=== PATIENT | female | born 1990 | race Caucasian/White ===

== ENCOUNTER 2020-05-30 16:16 | Emergency (ER) | payer OTHER ==
[2020-05-30 16:34] VITALS: BP 140/88; PULSE 93; TEMP 97.9; BMI 23.8
--- OUTSIDE RECORDS SUMMARY | 2020-05-30 16:44 | XMS ---
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 styleCode="Amy lics"> (74-106 MG/DL)</conten t> UNK > 60 <content [facility] styleCode="Tushar Neptali d">EGFR Medical </content>70 Center GFR<content styleCode="Amy lics"> (> 60 GFR)</content> Procedure Social History Code Duration Value Status Description Data Source(s ) Smoking 04/18/2020 Denies Ever completed Denies Ever Smoked [facility] 08:03:00 PM EDT Smoked Medical C enter Smoking 04/18/2020 Denies Ever completed Denies Ever Smoked [facility] 11:26:00 AM EDT Smoked Medical C enter Smoking 04/18/2020 Denies Ever completed Denies Ever Smoked [facility] 02:57:00 AM EDT Smoked Medical C enter Smoking 04/18/2020 Denies Ever completed Denies Ever Smoked [facility] 02:45:00 AM EDT Smoked Medical C enter Smoking 01/02/2020 Denies Ever completed Denies Ever Smoked [facility] 08:01:00 AM EDT Smoked Medical C enter Smoking 01/02/2020 Denies Ever completed Denies Ever Smoked [facility] 05:14:00 AM EDT Smoked Medical C enter Smoking 01/02/2020 Denies Ever completed Denies Ever Smoked [facility] 04:58:00 AM EDT Smoked Medical C enter Smoking Unknown if ever completed Unknown if ever Araceli jaclyn Neptali smoked smoked [facility] Vital Signs ID Date Data Source UNK Name Value Range Interpretation Code Description Data Source(s) Body temperature 37.442760 37.106363 [facility] Respiratory rate 19 /min 19 /min [facility] Oxygen saturation 100 % 100 % [facility] Arter[facility] blood [facility] by Pulse oximetry Heart rate 109 /min 109 /min [facility] Diastolic blood 82 mm[Hg] 82 mm[Hg] [facility] Systolic blood 133 mm[Hg] 133 mm[Hg] [facility] Body temperature 36.581045 36.510866 [facility] Respiratory rate 18 /min 18 /min [facility] Oxygen saturation 99 % 99 % [facility] Arter[facility] blood [facility] by Pulse oximetry Heart rate 112 /min 112 /min [facility] Diastolic blood 70 mm[Hg] 70 mm[Hg] [facility] Systolic blood 119 mm[Hg] 119 mm[Hg] [facility] Body temperature 36.437918 36.770773 [facility] Respiratory rate 18 /min 18 /min [facility] Oxygen saturation 99 % 99 % [facility] blood [facility] by Pulse oximetry Heart rate 110 /min 110 /min [facility] Diastolic blood 70 mm[Hg] 70 mm[Hg] [facility] Systolic blood 111 mm[Hg] 111 mm[Hg] [facility] Body temperature 36.011481 36.359448 [facility] Respiratory rate 21 /min 21 /min [facility] Oxygen saturation 98 % 98 % [facility] blood [facility] by Pulse oximetry Heart rate 115 /min 115 /min [facility] Diastolic blood 62 mm[Hg] 62 mm[Hg] [facility] Systolic blood 102 mm[Hg] 102 mm[Hg] [facility] Body temperature 37.688340 37.992185 [facility] Respiratory rate 18 /min 18 /min [facility] Oxygen saturation 98 % 98 % [facility] Arter[facility] blood [facility] by Pulse oximetry Heart rate 113 /min 113 /min [facility] Diastolic blood 66 mm[Hg] 66 mm[Hg] [facility] pressure [facility] Center Systolic blood 125 mm[Hg] 125 mm[Hg] [facility] Body temperature 36.867197 36.627109 [facility] Respiratory rate 18 /min 18 /min [facility] Oxygen saturation 100 % 100 % [facility] Arterial blood [facility] by Pulse oximetry Heart rate 108 /min 108 /min [facility] Diastolic blood 67 mm[Hg] 67 mm[Hg] [facility] Systolic blood 109 mm[Hg] 109 mm[Hg] [facility] Body temperature 36.958455 36.777819 [facility] Respiratory rate 18 /min 18 /min [facility] Oxygen saturation 96 % 96 % [facility] Arter[facility] blood [facility] by Pulse oximetry Heart rate 98 /min 98 /min [facility] Diastolic blood 47 mm[Hg] 47 mm[Hg] [facility] Systolic blood 111 mm[Hg] 111 mm[Hg] [facility] Body temperature 36.904070 36.303266 [facility] Respiratory rate 18 /min 18 /min [facility] Oxygen saturation 95 % 95 % [facility] Arter[facility] blood [facility] by Pulse oximetry Heart rate 119 /min 119 /min [facility] Diastolic blood 62 mm[Hg] 62 mm[Hg] [facility] Systolic blood 110 mm[Hg] 110 mm[Hg] [facility] Body weight 63.771425 kg 63.828045 kg [facility] Body temperature 37.227498 37.483043 [facility] Body height 157.712117 157.514958 [facility] Body mass index 25.6 kg/m2 25.6 kg/m2 [facility] (BMI) [Ratio] [facility] [place]
[2020-05-30] MEDS ORDERED: LACTATED RINGERS SOLUTION 1,000 ML IV STA (16:56)
[2020-05-30] MEDS ORDERED: ONDANSETRON 4 MG/2 ML VIAL IVPUSH ONE (16:56)
[2020-05-30] MEDS ORDERED: ACETAMINOPHEN 1000 MG/100 ML VIAL (NON FORMULARY) IVPB ONE (16:58)
--- NOTE | 2020-05-30 17:01 | PDOC ---
History of Present Illness - General Chief Complaint: Nausea/Vomiting Stated Complaint: VOMITING Time Seen by Provider: 05/30/20 16:38 History Source: Patient Exam Limitations: No Limitations - History of Present Illness Travel History: No Initial Comments: 05/30/20 16:58 HISTORY OF PRESENT ILLNESS: 29-year-old woman history of bipolar disorder who presents emergency department for evaluation of vomiting starting this morning. Patient reports she was recently increased on her for Lamictal and Wellbutrin and then had 8-10 alcoholic beverages last night. Patient reports she woke up feeling okay but then developed some nausea where she has had bilious vomiting this afternoon. Patient has been unable to tolerate food or liquids including water for the past 4 hours. She denies any abdominal pain. Patient reports she does get a mild headache during episodes of vomiting. No recent travel or sick contacts. PAST MEDICAL HISTORY: Bipolar disorder SURGICAL HISTORY: Denies ALLERGIES: Sulfa REVIEW OF SYSTEMS General/Constitutional: Denies fever or chills. Denies weakness, weight change. HEENT: Denies change in vision. Denies ear pain or discharge. Denies sore throat. Cardiovascular: Denies chest pain or shortness of breath. Respiratory: Denies cough, wheezing, or hemoptysis. Gastrointestinal: See HPI Genitourinary: Denies dysuria, frequency, or change in urination. Musculoskeletal: Denies joint or muscle swelling or pain. Denies neck or back pain. Skin and breasts: Denies rash or easy bruising. Neurologic: Denies headache, vertigo, loss of consciousness, or loss of sensation. Psychiatric: Denies depression or anxiety. Endocrine: Denies increased thirst. Denies abnormal weight change. Hematologic/Lymphatic: Denies anemia, easy bleeding, or history of blood clots. Allergic/Immunologic: Denies hives or skin allergy. Denies latex allergy. PHYSICAL EXAM General Appearance: Well-appearing, appropriately dressed. No apparent dis tress, no intoxication. HEENT: EOMI, PERRLA, normal ENT inspection, normal voice, TMs normal, pharynx normal. No conjunctival pallor. No photophobia, scleral icterus. Neck: Supple. Trachea midline. No tenderness, rigidity, carotid bruit, stridor, lymphadenopathy, or thyromegaly. Respiratory/Chest: Lungs CTAB. No shortness of breath, chest tenderness, respiratory distress, accessory muscle use. No crackles, rales, rhonchi, stridor, wheezing, dullness Cardiovascular: RRR. S1, S2. No JVD, murmur, bradycardia, tachycardia. Vascular Pulses: Dorsalis-Pedis (R): 2+, Dorsalis-Pedis (L): 2+ Gastrointestinal/Abdominal: Normal bowel sounds. Abdomen soft, non-distended. No tenderness or rebound tenderness. No organomegaly, pulsatile mass, guarding, hernia, hepatomegaly, splenomegaly. Lymphatic: No adenopathy, tenderness. Integumentary: Scaly erythematous rash present to bilateral axilla and neck folds with the appearance of eczema Neurologic: retail stock clerk II-XII intact. Fully oriented, alert. Appropriate mood/affect. Motor strength 5/5. No appreciable EOM palsy, facial droop or sensory deficit. Normal [id number] testing. Gait is steady. Past History - Medical History Allergies/Adverse Reactions: Allergies Allergy/AdvReac Type Severity Reaction Status Date / Time Sulfa (Sulfonamide Allergy Mild Hives Verified 05/30/20 16:30 Antibiotics) Home Medications: Ambulatory Orders Nitrofurantoin Monohyd/M-Cryst [Macrobid -] 100 mg PO BID #10 capsule 11/10/13 No Home Medications 0 dose .ROUTE UTDICT 11/10/13 Phenazopyridine HCl [Pyridium] 100 mg PO BID #6 tablet 11/10/13 Cephalexin Monohydrate [Keflex -] 500 mg PO BID #14 capsule 05/30/20 COPD: No - Reproductive History Is Patient Now?: No - Immunization History Immunization Up to Date: Yes - Psycho-Social/Smoking History Smoking History: Never smoked Number of Cigarettes Smoked Daily: 4 Information on smoking cessation initiated: No - Substance Abuse Hx (Audit-C & DAST Scrn) How often the patient has a drink containing alcohol: Never Score: In Men: 4 or > Positive; In Women: 3 or > Positive: 0 Screen Result (Pos requires Nsg. Audit-10AR): Negative *Physical Exam - Vital Signs Last Vital Signs Temp Pulse Resp BP Pulse Ox 97.9 F 93 H 17 140/88 99 05/30/20 16:30 05/30/20 16:30 05/30/20 16:30 05/30/20 16:30 05/30/20 16:30 ED Treatment Course - LABORATORY CBC & Chemistry Diagram: 05/30/20 17:30 05/30/20 17:30 Medical Decision Making - Medical Decision Making 05/30/20 17:01 A/P: 29-year-old woman with vomiting throughout the day today Physical exam is unremarkable with the exception of eczema to bilateral antecubitals and neck folds Labs including lipase and Lamictal level LR 1 L IV bolus Zofran 4 mg IV push Urinalysis, urine , urine culture Reassess 05/30/20 18:42 Laboratory Tests 05/30/20 05/30/20 05/30/20 17:30 17:30 17:30 WBC 10.1 H RBC 4.56 Hgb 14.2 Hct 42.0 MCV 92.2 MCH 31.3 MCHC 33.9 RDW 13.2 Plt Count 365 MPV 8.4 D Absolute Neuts (auto) 7.3 Neutrophils % 72.8 Lymphocytes % 18.7 Monocytes % 5.4 Eosinophils % 1.7 Basophils % 1.4 Nucleated RBC % 0 Sodium 141 Potassium 3.7 Chloride 105 Carbon Dioxide 29 Anion Gap 7 L BUN 12.0 Creatinine 0.8 Est GFR (CKD-EPI)AfAm 116.28 Est GFR (CKD-EPI)NonAf 100.33 Random Glucose 80 Calcium 9.8 Total Bilirubin 0.7 AST 26 ALT 28 Alkaline Phosphatase 77 Total Protein 8.3 H Albumin 4.6 Lipase 105 Urine Color Urine Appearance Urine pH Ur Specific [place] Urine Protein Urine Glucose (UA) Urine Ketones Urine Blood Urine Nitrite Urine Bilirubin Urine Urobilinogen Ur Leukocyte Esterase Urine WBC (Auto) Urine Casts (Auto) U Epithel Cells (Auto) Urine Bacteria (Auto) Urine HCG, Qual Lamotrigine Pending 05/30/20 05/30/20 18:15 18:15 WBC RBC Hgb Hct MCV MCH MCHC RDW Plt Count MPV Absolute Neuts (auto) Neutrophils % Lymphocytes % Monocytes % Eosinophils % Basophils % Nucleated RBC % Sodium Potassium Chloride Carbon Dioxide Anion Gap BUN Creatinine Est GFR (CKD-EPI)AfAm Est GFR (CKD-EPI)NonAf Random Glucose Calcium Total Bilirubin AST ALT Alkaline Phosphatase Total Protein Albumin Lipase Urine Color Yellow Urine Appearance Clear Urine pH 5.5 Ur Specific [place] 1.036 H Urine Protein 2+ H Urine Glucose (UA) Negative Urine Ketones Negative Urine Blood 2+ H Urine Nitrite Negative Urine Bilirubin Negative Urine Urobilinogen 1.0 Ur Leukocyte Esterase Negative Urine WBC (Auto) 48 Urine Casts (Auto) 6 U Epithel Cells (Auto) >36 Urine Bacteria (Auto) 1372 Urine HCG, Qual Negative Lamotrigine Patient reports she feels better. Currently asymptomatic. P.o. trial Reassess Likely discharge home with Keflex 500 mg twice daily for 7 days to treat cystitis. 05/30/20 19:07 Patient able to tolerate p.o.'s without difficulty. I discussed the physical exam findings, ancillary test results and final diagnoses with the patient. I answered all of the patient's questions. The patient was satisfied with the care received and felt comfortable with the discharge plan and treatment plan. The patient will call their primary care physician within 24 hours to arrange follow-up and will return to the Emergency Department with any new, persistent or worsening symptoms. Portions of this note have been documented using voice recognition software. As a result, errors may occur in the bulk sealer operator process. Effort has been made to correct all grammatical and bulk sealer operator error, but some may have been missed which may produce sporadic inaccurate bulk sealer operator or nonsensical phrases. Discharge - Discharge Information Problems reviewed: Yes Clinical Impression/Diagnosis: UTI (urinary tract infection) Qualifiers: Urinary tract infection type: acute cystitis Hematuria presence: without hematuria Qualified Code(s): N30.00 - Acute cystitis without hematuria Condition: Fair Disposition: HOME - Admission No - Additional Discharge Information Prescriptions: Cephalexin Monohydrate [Keflex -] 500 mg PO BID #14 capsule - Follow up/Referral - Patient Discharge Instructions Additional Instructions: Rest, drink lots of fluids: Teas, water, soups Avoid contact with others until fevers and symptoms resolved Lots of handwashing and good hygiene Continue [id number] medications for symptomatic relief Tylenol or Motrin for fever and pain Continue all of antibiotics until completed Followup with private physician in one week for repeat urinalysis/reevaluation Return to emergency department for worsened symptoms, fevers, dehydration Your Lamictal level will get a result in a couple of days. You will receive a call with the levels you can let your prescriber know what the current level is. - Post Discharge Activity
[2020-05-30] MEDS ORDERED: ACETAMINOPHEN INJECTION 100 ML IVPB ONE (17:28)
[2020-05-30 18:04] LABS: BASO % 1.4 % (0-2.0); EOS % 1.7 % (0-4.5); HEMOGLOBIN 14.2 GM/dL (10.7-15.3); LYMPH % 18.7 % (8-40); MCH 31.3 pg (25.7-33.7); MCHC 33.9 g/dl (32.0-36.0); MEAN CELL VOLUME 92.2 fl (80-96); MEAN PLT VOLUME 8.4 fl (7.5-11.1); MONO % 5.4 % (3.8-10.2); NEUT % 72.8 % (42.8-82.8); PLATELET COUNT 365 K/MM3 (134-434); RBC 4.56 M/mm3 (3.60-5.2); RDW 13.2 % (11.6-15.6); WHITE BLOOD COUNT 10.1 K/mm3 (4.0-10.0)
[2020-05-30 18:32] LABS: ALBUMIN 4.6 g/dl (3.4-5.0); BILIRUBIN,TOTAL 0.7 mg/dL (0.2-1); CALCIUM 9.8 mg/dL (8.5-10.1); CREATININE 0.8 mg/dL (0.55-1.3); POTASSIUM 3.7 mmol/L (3.5-5.1); TOT PROT 8.3 g/dl (6.4-8.2)
[2020-05-30 18:33] LABS: EPI CELLS >36 /uL (0-25.1); HYALINE CASTS 6 /uL (0-3.1); PH,URINE 5.5 (5.0-8.0); URINE APPEARANCE CLEAR; URINE BACTERIA 1372 /uL (0-1359); URINE BILIRUBIN NEGATIVE (NEGATIVE); URINE COLOR YELLOW; URINE GLUCOSE (UA) NEGATIVE (NEGATIVE); URINE KETONE NEGATIVE (NEGATIVE); URINE LEUK ESTERASE NEGATIVE (NEGATIVE); URINE NITRITE NEGATIVE (NEGATIVE); URINE PROTEIN 2+ (NEGATIVE); URINE WBC 48 /uL (0-25.8)
[2020-05-30 18:56] LABS: URINE RBC 97.5 /uL (0-23.9)
== END 2020-05-30 19:21 | disposition home or self-care (01) ==
LOC: JER 16:16
PROC: 3E033NZ Introduction of Analgesics, Hypnotics, Sedatives into Peripheral Vein, Percutaneous Approach (ICD-10-PCS; principal; 2020-05-30)
PROC: 3E033GC Introduction of Other Therapeutic Substance into Peripheral Vein, Percutaneous Approach (ICD-10-PCS; 2020-05-30)
PROC: 3E0337Z Introduction of Electrolytic and Water Balance Substance into Peripheral Vein, Percutaneous Approach (ICD-10-PCS; 2020-05-30)
DX: N30.00 Acute cystitis without hematuria (principal)
CPT/HCPCS: 36415; 80053; 80175; 81003; 83690; 84703; 85025; 87086; 99284-25; J0131

== ENCOUNTER 2020-06-15 08:11 | Emergency (ER) | payer OTHER ==
[2020-06-15 08:30] VITALS: BMI 23.8
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
--- NOTE | 2020-06-15 08:40 | PDOC ---
History of Present Illness - General Chief Complaint: Ear Problem Stated Complaint: EAR PAIN/ BLEEDING Time Seen by Provider: 06/15/20 08:39 Exam Limitations: No Limitations - History of Present Illness Initial Comments: 06/15/20 09:07 29 y.o. F PMHx of anxiety presenting holly o R ear pain and drainage. Patient states She had been poking around in her ear with a pair of tweezers. She went to urgent care who prescribed her amoxicillin 3 days ago. She reports she has been putting cue tips in the ear to aid in the fluid drainage that has been yellow in color. She states she cannot hear out of the ear and has mild drainage to the throat, but has no pain, fevers, chills. PMHx: Anxiety Meds: In Chart Allergies: Sulfa Is this a multiple visit Asthma Patient?: No Timing/Duration: 1 week Severity: moderate Past History - Medical History Allergies/Adverse Reactions: Allergies Allergy/AdvReac Type Severity Reaction Status Date / Time Sulfa (Sulfonamide Allergy Mild Hives Verified 06/15/20 08:24 Antibiotics) Home Medications: Ambulatory Orders Nitrofurantoin Monohyd/M-Cryst [Macrobid -] 100 mg PO BID #10 capsule 11/10/13 No Home Medications 0 dose .ROUTE UTDICT 11/10/13 Phenazopyridine HCl [Pyridium] 100 mg PO BID #6 tablet 11/10/13 Nitrofurantoin Monohyd/M-Cryst [Macrobid -] 100 mg PO BID #14 capsule 07/28/19 Phenazopyridine HCl [Pyridium -] 100 mg PO TID 2 Days #6 tablet 07/28/19 Cephalexin Monohydrate [Keflex -] 500 mg PO BID #14 capsule 05/30/20 Amox-Tr/K Cl [Augmentin - 875Mg Tablet] 1 tab PO BID #20 tablet 06/15/20 Clobetasol Propionate/Emoll [Clobetasol Emollient 0.05% Crm] 30 gm TP ONCE #1 cream..g. 06/15/20 COPD: No - Reproductive History Is Patient Now?: No - Immunization History Immunization Up to Date: Yes - Psycho-Social/Smoking History Smoking History: Current every day smoker Number of Cigarettes Smoked Daily: 4 Information on smoking cessation initiated: No Review of Systems - Review of Systems Able to Perform ROS?: Yes Is the patient limited Latvian proficient: No Constitutional: Yes: Symptoms Reported. No: Chills, Fever HEENTM: Yes: Hearing Loss (R). No: Blurred Vision, Double Vision, Ear Pain, Tinnitus, Throat Pain, Throat Swelling Respiratory: No: Cough, Shortness of Breath, Stridor, Wheezing Cardiac (ROS): No: Chest Pain, Lightheadedness ABD/GI: No: Constipated, Diarrhea, Nausea, Vomiting : No: Burning, Dysuria Musculoskeletal: No: Back Pain, Muscle Weakness Integumentary: No: Dryness, Pruritus, Rash Neurological: No: Headache, Numbness, Tingling, Dizziness Hematologic/Lymphatic: No: Easy Bleeding, Bleeding Diathesis *Physical Exam - Vital Signs Last Vital Signs Temp Pulse Resp BP Pulse Ox 97.3 F L 102 H 18 142/95 99 06/15/20 08:19 06/15/20 08:19 06/15/20 08:19 06/15/20 08:19 06/15/20 08:19 - Physical Exam General Appearance: Yes: Nourished, Appropriately Dressed. No: Apparent Distress HEENT: positive: Hearing Decreased (R side hearing is limited). negative: Normal ENT Inspection, TMs Normal (R side is obstructed due to large amount of fluid), Rhinorrhea, Sinus Tenderness Respiratory/Chest: positive: Lungs Clear, Normal Breath Sounds. negative: Chest Tender, Crackles, Rales, Stridor, Wheezing Cardiovascular: positive: Regular Rhythm, Regular Rate. negative: Edema, JVD, Murmur Gastrointestinal/Abdominal: positive: Normal Bowel Sounds, Flat, Soft. negative: Tender, Distended, Rebound, Tenderness, Hepatomegaly Musculoskeletal: positive: Normal Inspection. negative: CVA Tenderness Extremity: positive: Normal Inspection. negative: Tender, Coldness, Cyanosis, Swelling, Calf Tenderness Integumentary: positive: Normal Color, Dry, Warm. negative: Rash Neurologic: positive: Fully Oriented, Alert, Normal Mood/Affect, Normal Response. negative: Confused, Disoriented Medical Decision Making - Medical Decision Making 06/15/20 09:17 29 y.o. F PMHx of anxiety presenting holly o R ear pain and drainage. DDx: R TM rupture, otitis externa, otitis media - Sent home with Rx of augmentin Dispo: D/C home 06/15/20 09:29 Discharge - Discharge Information Problems reviewed: Yes Clinical Impression/Diagnosis: Tympanic membrane perforation Qualifiers: Laterality: right Qualified Code(s): H72.91 - Unspecified perforation of tympanic membrane, right ear Condition: Stable Disposition: HOME - Admission No - Follow up/Referral Referrals: ON STAFF,NOT [Primary Care Provider] - Mark Aguero MD [Staff Physician] - - Patient Discharge Instructions Additional Instructions: You were seen in the emergency department for R ear drainage. This can be caused by rupture of the ear drum. You were sent home with a prescription of Augmentin. Please follow up with your primary care physician and or ENT physician on Tuesday regarding your visit to the emergency department. If you experience profound fever, chills, ear pain please return to the emergency department. - Post Discharge Activity
--- NOTE | 2020-06-15 09:34 | PDOC ---
Documentation entered by Vania Pinto SCRIBE, acting as scribe for Radha Cárdenas MD. Radha Cárdenas MD: This documentation has been prepared by the Blair ness Sydney, SCRIBE, under my direction and personally reviewed by me in its entirety. I confirm that the documentation accurately reflects all work, treatment, procedures, and medical decision making performed by me. Attending Attestation - Resident Resident Name: Justin Sam - ED Attending Attestation I have performed the following: I have examined & evaluated the patient, The case was reviewed & discussed with the resident, I agree w/resident's findings & plan, Exceptions are as noted - HPI HPI: 06/15/20 09:17 Patient is a 29 year old female with a significant past medical history of anxiety who presents to the ED with right ear pain with drainage. As per patient, she was poking her ear with tweezers when she suddenly experienced pain, prompting her to be evaluated at [facility] and was prescribed amoxicillin 3 days ago. She endorses using Q-tips to aid in fluid drainage, that has been yellow in color. She reports being unable to hear out of her right ear, Denies headache, fever, chills, shortness of breath, chest pain, abdominal pain, nausea, vomiting, diarrhea, or urinary changes. Allergies: Sulfa PCP: Not on Staff - Physicial Exam PE: 06/15/20 09:25 Agree with resident exam. Patient is alert and oriented and in no acute distress. R ear: no tenderness over the tragus. External ear canal appears normal. No erythema, wetness or tenderness. + clear fluid in the ear canal with bubbles. unable to visualize the TM secondary to fluid. - Medical Decision Making 06/15/20 09:30 Pt presents to the ED complaining of clear drainage from her R ear canal without fever. Denies other complaints except for rash on her arms consistent with eczema. Exam is not consistent with otitis externa. Fluid is of uncertain etiology--it is likely secondary to drainage from the TM. will treat with augmentin, since patient has persistent symptoms after three days of amoxicillin. Will refer urgently to ENT. Will instruct patient to stop putting things into her ears. Discharge - Discharge Information Problems reviewed: Yes Clinical Impression/Diagnosis: Tympanic membrane perforation Qualifiers: Laterality: right Qualified Code(s): H72.91 - Unspecified perforation of tympanic membrane, right ear Condition: Stable Disposition: HOME - Additional Discharge Information Prescriptions: Amox-Tr/K Cl [Augmentin - 875Mg Tablet] 1 tab PO BID #20 tablet Clobetasol Propionate/Emoll [Clobetasol Emollient 0.05% Crm] 30 gm TP ONCE #1 cream..g. - Follow up/Referral Referrals: ON STAFF,NOT [Primary Care Provider] - Mark Aguero MD [Staff Physician] - - Patient Discharge Instructions Additional Instructions: You were seen in the emergency department for R ear drainage. This can be caused by rupture of the ear drum. You were sent home with a prescription of Augmentin. Please follow up with your primary care physician and or ENT physician on Tuesday regarding your visit to the emergency department. If you experience profound fever, chills, ear pain please return to the emergency department. - Post Discharge Activity
[2020-06-15 09:57] VITALS: BP 130/89; PULSE 100; TEMP 98.3
== END 2020-06-15 09:45 | disposition home or self-care (01) ==
LOC: JER 08:11
DX: H72.91 Unspecified perforation of tympanic membrane, right ear (principal)
CPT/HCPCS: 99283-25

== ENCOUNTER 2020-09-19 02:37 | Emergency (ER) | payer OTHER ==
[2020-09-19 03:31] VITALS: BP 148/93; PULSE 87; TEMP 98.3; BMI 23.8
== END 2020-09-19 04:41 | disposition left against medical advice (07) ==
LOC: JER 02:37
DX: R42 Dizziness and giddiness (principal)
CPT/HCPCS: 87426; 99284-25

== ENCOUNTER 2020-10-01 06:36 | Emergency (ER) | payer SELFPAY ==
[2020-10-01 07:40] VITALS: BP 145/89; PULSE 107; TEMP 98.2; BMI 24.7
[2020-10-01] MEDS ORDERED: ONDANSETRON *ODT* 4 MG TABLET SL ONE (08:57)
[2020-10-01] MEDS ORDERED: FAMOTIDINE 20 MG TABLET PO ONE (08:58)
[2020-10-01] MEDS ORDERED: FAMOTIDINE 20 MG TABLET ONE (09:10)
[2020-10-01] MEDS ORDERED: ONDANSETRON *ODT* 4 MG TABLET ONE (09:10)
== END 2020-10-01 10:35 | disposition home or self-care (01) ==
LOC: JER 06:36
DX: R11.2 Nausea with vomiting, unspecified (principal)
CPT/HCPCS: 84703; 99284-25; Q0162

== ENCOUNTER 2021-01-07 13:36 | Emergency (ER) | payer OTHER ==
[2021-01-07 13:49] VITALS: BP 131/87; PULSE 120; TEMP 98.7; BMI 25.2
[2021-01-07] MEDS ORDERED: LORazepam 1 MG TABLET PO ONE (14:29)
[2021-01-07] MEDS ORDERED: LORazepam 1 MG TABLET ONE (14:38)
[2021-01-07 14:47] LABS: BASO % 1.2 % (0-2.0); EOS % 1.5 % (0-4.5); HEMATOCRIT 38.4 % (32.4-45.2); HEMOGLOBIN 12.9 GM/dL (10.7-15.3); LYMPH % 22.7 % (8-40); MCH 30.4 pg (25.7-33.7); MCHC 33.6 g/dl (32.0-36.0); MEAN CELL VOLUME 90.4 fl (80-96); MEAN PLT VOLUME 7.3 fl (7.5-11.1); MONO % 5.5 % (3.8-10.2); NEUT % 69.1 % (42.8-82.8); PLATELET COUNT 344 K/MM3 (134-434); RBC 4.25 M/mm3 (3.60-5.2); RDW 13.1 % (11.6-15.6); WHITE BLOOD COUNT 7.6 K/mm3 (4.0-10.0)
[2021-01-07 14:57] LABS: CHLORIDE 105 mmol/L (98-107); SODIUM 140 mmol/L (136-145)
[2021-01-07 14:58] LABS: CALCIUM 9.2 mg/dL (8.5-10.1)
[2021-01-07 14:59] LABS: ALBUMIN 4.1 g/dl (3.4-5.0); ANION GAP 9 MMOL/L (8-16); BLOOD UREA NITROGEN 8.7 mg/dL (7-18); CO2 26 mmol/L (21-32); GLUCOSE,RANDOM 89 mg/dL (74-106)
[2021-01-07] MEDS ORDERED: LACTATED RINGERS SOLUTION 1000 ML INFUS.BAG IV ONE (15:00)
[2021-01-07 15:02] LABS: CREATININE 0.8 mg/dL (0.55-1.3); SGOT/AST 21 U/L (15-37); SGPT/ALT 19 U/L (13-61)
[2021-01-07] MEDS ORDERED: POTASSIUM CHLORIDE TABS 20 MEQ TABLET.ER (FP) PO ONE ×2 (15:03→15:29)
[2021-01-07 15:04] LABS: BILIRUBIN,TOTAL 0.3 mg/dL (0.2-1)
[2021-01-07 15:05] LABS: ALK PHOS 72 U/L (45-117); TOT PROT 7.3 g/dl (6.4-8.2)
[2021-01-07] MEDS ORDERED: ONDANSETRON 4 MG/2 ML VIAL ONE (17:17)
[2021-01-07] MEDS: ONDANSETRON 4 MG/2 ML VIAL IVPUSH ONE ×2 (17:23→18:52)
== END 2021-01-07 19:20 | disposition home or self-care (01) ==
LOC: JER 13:36
PROC: 3E033GC Introduction of Other Therapeutic Substance into Peripheral Vein, Percutaneous Approach (ICD-10-PCS; principal; 2021-01-07)
DX: R55 Syncope and collapse (principal)
CPT/HCPCS: 36415; 71045-TC-FY; 80053; 84443; 84484; 84703; 85025; 93005; 93010; 99285-25

== ENCOUNTER 2021-01-10 02:52 | Emergency (ER) | payer OTHER ==
[2021-01-10 03:02] VITALS: BP 126/82; PULSE 93; TEMP 98.7; BMI 24.7
[2021-01-10] MEDS ORDERED: DEXAMETHASONE 4 MG TABLET (FP) PO ONE (03:39)
[2021-01-10] MEDS ORDERED: DEXAMETHASONE 4 MG TABLET (FP) ONE (03:46)
== END 2021-01-10 04:00 | disposition home or self-care (01) ==
LOC: JER 02:52
DX: T50.905A Adverse effect of unspecified drugs, medicaments and biological substances, initial encounter (principal)
CPT/HCPCS: 99283-25

== ENCOUNTER 2021-05-16 20:29 | Emergency (ER) | payer OTHER ==
[2021-05-16 20:41] VITALS: BP 141/69; PULSE 98; TEMP 97.2; BMI 25.6
[2021-05-16 22:06] LABS: BASO % 1.1 % (0-2.0); EOS % 4.6 % (0-4.5); HEMATOCRIT 40.8 % (32.4-45.2); HEMOGLOBIN 14.1 GM/dL (10.7-15.3); LYMPH % 19.2 % (8-40); MCH 30.8 pg (25.7-33.7); MCHC 34.6 g/dl (32.0-36.0); MEAN PLT VOLUME 7.5 fl (7.5-11.1); NEUT % 70.1 % (42.8-82.8); PLATELET COUNT 337 10^3/uL (134-434); RBC 4.58 M/mm3 (3.60-5.2); RDW 12.9 % (11.6-15.6)
[2021-05-16 22:24] LABS: CHLORIDE 103 mmol/L (98-107); SODIUM 136 mmol/L (136-145)
[2021-05-16 22:26] LABS: CALCIUM 9.7 mg/dL (8.5-10.1)
[2021-05-16 22:27] LABS: ALBUMIN 4.4 g/dl (3.4-5.0); ANION GAP 5 MMOL/L (8-16); BLOOD UREA NITROGEN 11.4 mg/dL (7-18); CO2 28 mmol/L (21-32); GLUCOSE,RANDOM 80 mg/dL (74-106)
[2021-05-16 22:30] LABS: CREATININE 0.8 mg/dL (0.55-1.3); SGOT/AST 15 U/L (15-37); SGPT/ALT 26 U/L (13-61)
[2021-05-16 22:32] LABS: TOT PROT 7.9 g/dl (6.4-8.2)
[2021-05-16 22:33] LABS: ALK PHOS 79 U/L (45-117)
[2021-05-16 22:44] LABS: BILIRUBIN,TOTAL 0.7 mg/dL (0.2-1)
== END 2021-05-16 22:51 | disposition home or self-care (01) ==
LOC: JERFT 20:29
DX: R07.1 Chest pain on breathing (principal)
CPT/HCPCS: 36415; 71046-TC-FY; 80053; 84484; 85025; 85379; 93005; 93010; 99285-25

== ENCOUNTER 2023-11-28 06:21 | Day surgery (SDC) | payer OTHER ==
[2023-11-23 10:11] VITALS: BMI 24.8
[2023-11-28 06:52] VITALS: TEMP 97.3
[2023-11-28] MEDS ORDERED: OXYMETAZOLINE 0.05% NASAL SOLUTION 15 ML BOTTLE NS ONE (07:20)
[2023-11-28] MEDS ORDERED: LIDOCAINE 1%/EPI 1:100000 (20 ML MULTI DOSE VIAL) ONE ×2 (07:20→08:44)
[2023-11-28] MEDS ORDERED: PROPOFOL 40 ML ONE (07:40)
[2023-11-28] MEDS ORDERED: DEXAMETHASONE SOD PHOSPHATE 4 MG/1 ML VIAL ONE (07:40)
[2023-11-28] MEDS ORDERED: LIDOCAINE HCL/PF 2% SDV 5ML VIAL ONE (07:40)
[2023-11-28] MEDS ORDERED: ROCURONIUM BROMIDE 50 MG/5 ML SYRINGE ONE (07:40)
[2023-11-28] MEDS ORDERED: ceFAZolin SODIUM 1 GM VIAL ONE (07:40)
[2023-11-28] MEDS ORDERED: ONDANSETRON 4 MG/2 ML VIAL ONE (07:40)
[2023-11-28] MEDS ORDERED: MIDAZOLAM HCL 2 MG/2 ML SINGLE DOSE VIAL ONE (07:40)
[2023-11-28] MEDS ORDERED: oxyCODONE HCL 5 MG TABLET PO PRN (08:01)
[2023-11-28] MEDS ORDERED: ONDANSETRON 4 MG/2 ML VIAL IVPUSH PRN (08:01)
[2023-11-28] MEDS ORDERED: LACTATED RINGERS SOLUTION 1,000 ML IV SCH (08:15)
[2023-11-28] MEDS ORDERED: BACITRACIN ZINC 15 GM TUBE TOPICAL OINTMENT ONE (10:56)
[2023-11-28] MEDS: ACETAMINOPHEN 1000 MG/100 ML BAG IVPB ONE (11:30)
[2023-11-28 12:17] VITALS: RESP 16
[2023-11-28 12:41] VITALS: BP 122/67; PULSE 88
== END 2023-11-28 13:10 | disposition home or self-care (01) ==
LOC: FASU 06:21
PROVIDERS: ATTEND Plastic Surgery
PROC: 09BM0ZZ Excision of Nasal Septum, Open Approach (ICD-10-PCS; principal; 2023-11-28 08:56)
DX: J34.2 Deviated nasal septum (principal); J34.3 Hypertrophy of nasal turbinates
CPT/HCPCS: 81025; 94760; J0131